=== PATIENT | male | born 1960 | race African-American/Black ===

== ENCOUNTER 2024-06-09 09:41 | Emergency (ER) | payer BC ==
[2024-06-09 11:01] LABS: APPEARANCE,URINE CLEAR (Clear); BILIRUBIN,URINE NEGATIVE (Negative); COLOR,URINE YELLOW (Yellow); GLUCOSE,URINE NEGATIVE (Negative); KETONES,URINE NEGATIVE (Negative); LEUKOCYTE ESTERASE,URINE NEGATIVE (Negative); NITRITE,URINE NEGATIVE (Negative); OCCULT BLOOD,URINE 1+ (Negative); PROTEIN,URINE NEGATIVE (Negative)
[2024-06-09 11:42] LABS: BACTERIA,URINE FEW /hpf (FEW); MUCUS,URINE RARE /hpf (FEW); SQUAMOUS EPITHELIAL CELLS,UR 0-5 /hpf (0-5); WBC,URINE 0-5 /hpf (0-5)
== END 2024-06-09 12:34 | disposition home or self-care (01) ==
LOC: JD.ED 09:41
DX: N40.1 Benign prostatic hyperplasia with lower urinary tract symptoms (principal); R33.8 Other retention of urine
CPT/HCPCS: 51702; 81001; 99284